=== PATIENT | female | born 1985 | race Caucasian/White ===

== ENCOUNTER 2016-05-21 17:51 | Observation (INO) | payer BC, OTHER ==
[~2016-05-21] VITALS: Ht 154.9 cm; Wt 101.0 kg
[2016-05-21] MEDS ORDERED: morphine 4 MG/ML VIAL IV STA ×2 (20:20→22:31)
--- NOTE | 2016-05-21 20:38 | ERD ---
ER Documentation Chief Complaint Date/Time DATE: 05/21/16 TIME: 20:34 Chief Complaint RIGHT PELVIC PAIN, ONSET 3 WEEKS, NO VAG BLEEDING, SENT PER PMD HPI This is a 30-year-old female presents emergency department for right-sided pelvic pain 3 weeks. Patient states pain started 3 weeks ago however has gotten worse over the last 5 days. Denies vaginal bleeding or vaginal discharge. No relieving or aggravating factors. Patient rating pain 10/10 to right pelvis. Pain is nonradiating. No dysuria or hematuria. No abdominal or chest pain. Denies shortness of breath or difficulty breathing. No diarrhea. Patient was seen in outside facility in which a pelvic ultrasound was done and due to insurance patient was sent here for additional evaluation. Patient was told she has a right twisted ovarian cyst and that she would need to be admitted. Patient did have one episode of vomiting last night and this morning however has taken antinausea medicine as prescribed and has had no vomiting since. Patient taking [place] at home for pain. ROS All systems reviewed and are negative except as per history of present illness. Allergies Allergies: Coded Allergies: No Known Allergy (Unverified , 05/21/16) PMhx/Soc Medical and Surgical Hx: pt denies Medical Hx, pt denies Surgical Hx Hx Alcohol Use: No Hx Substance Use: No Hx Tobacco Use: No Smoking Status: Never smoker Physical Exam Vitals Vital Signs Date Time Temp Pulse Resp B/P Pulse Ox O2 Delivery O2 Flow Rate FiO2 05/21/16 18:11 99.3 94 18 128/67 97 Physical Exam Const: No acute distress, alert Head: Atraumatic Eyes: Normal Conjunctiva ENT: Normal External Ears, Nose and Mouth. Neck: Full range of motion..~ No meningismus. Resp: Clear to auscultation bilaterally Cardio: Regular rate and rhythm, no murmurs Abd: Soft, non distended. Normal bowel sound. tenderness to right pelvis with palpation. Negative Rogers sign. Negative rebound tenderness. Skin: No petechiae or rashes Back: No midline or flank tenderness Ext: No cyanosis, or edema Neur: Awake and alert Psych: Normal Mood and Affect Result Diagram: 05/21/16205405/21/162054 Results 24 hrs Laboratory Tests Test 05/21/16 20:55 05/21/16 20:58 Anion Gap 16 Basophils # 0.110^3/ul Basophils % 0.4% Blood Morphology Comment Blood Urea Nitrogen 7mg/dl Calcium Level 9.1mg/dl Carbon Dioxide Level 28mmol/L Chloride Level 103mmol/L Creatinine 0.58mg/dl Eosinophils # 0.310^3/ul Eosinophils % 1.9% Glucose Level 78mg/dl Hematocrit 40.6% Hemoglobin 13.9g/dl Lymphocytes # 4.410^3/ul Lymphocytes % 30.2% Mean Corpuscular Hemoglobin 30.7pg Mean Corpuscular Hemoglobin Concent 34.2g/dl Mean Corpuscular Volume 89.7fl Mean Platelet Volume 7.2fl Monocytes # 0.510^3/ul Monocytes % 3.4% Neutrophils # 9.310^3/ul Neutrophils % 64.1% Nucleated Red Blood Cells # 0.010^3/ul Nucleated Red Blood Cells % 0.0/100WBC Platelet Count 29582^3/UL Potassium Level 3.9mmol/L Red Blood Count 4.5310^6/ul Red Cell Distribution Width 12.6% Sodium Level 143mmol/L White Blood Count 14.510^3/ul Bedside Urine Blood Trace-lysed Bedside Urine Glucose (UA) Negative Bedside Urine Ketones (LAB) Negative Bedside Urine Leukocyte Esterase (L Negative Bedside Urine Nitrite (LAB) Negative Bedside Urine Protein (LAB) Negative Bedside Urine pH (LAB) 5.5 Current Medications Medications (Trade) Dose Ordered Sig/Omar Route PRN Reason Start Time Stop Time Status Last Admin Dose Admin Morphine Sulfate (morphine) 4 mg ONCE STAT IV 05/21/16 20:20 05/21/16 20:23 DC 05/21/16 20:51 Morphine Sulfate (morphine) 4 mg ONCE STAT IV 05/21/16 22:31 05/21/16 22:33 DC 05/21/16 22:43 Hydromorphone HCl (Dilaudid) 0.5 mg ONCE STAT IV 05/22/16 01:02 05/22/16 01:04 DC 05/22/16 01:20 Procedures/MDM ED COURSE: The patient was stable throughout ED course. I kept the patient and/or family informed of laboratory and diagnostic imaging results throughout the ED course. IV was started Laboratory CBC White blood cell 14.5 otherwise unremarkable BMP unremarkable Urine dip trace blood otherwise negative Urine negative Gonorrhea and Chlamydia Imaging Pelvic ultrasound Patient: MIGUEL MACHADO: 1985 Age: 30 Sex: F MR #: [id number] DOS: 05/21/162019 Ordering MD: BENIGNO PEREZ NP Location: [facility] Room/Bed: PROCEDURE: US Pelvis. CLINICAL INDICATION: Pelvic pain. History of hysterectomy 2 years ago. TECHNIQUE: The pelvis was evaluated with transabdominal sonography in the axial and sagittal planes. COMPARISON: No prior study is available for comparison. FINDINGS: The uterus is surgically absent. The right ovary measures 5.7 x 4.9 x 4.5 cm and the left ovary measures 3.4 x 2.6 x 3.5 cm. There is a right ovarian cyst measuring 4.7 x 4.2 x 3.9 cm. There are no internal echoes or septations. The left ovary is normal. A small amount of free fluid is present adjacent to the right ovary. Color Doppler and pulsed Doppler sonography demonstrate normal flow to both ovaries. There is no other pelvic mass. IMPRESSION: 1. Status post hysterectomy. 2. Right ovarian benign-appearing cyst measuring 4.7 x 4.2 x 3.9 cm. Follow- up ultrasound in 3 months is advised. 3. Small amount of free fluid in the right adnexa. 4. Otherwise unremarkable study. MDM: 30-year-old female presents emergency department for right-sided pelvic pain. Patient has had pain for the past 3 weeks however worsened over the last 5 days. IV was started and patient was given morphine IV with some relief of pain. Patient continues to have pain and therefore another dose of morphine IV was given. Labs are unremarkable. No signs of serious infection or anemia. Urine negative for infection. Pelvic ultrasound reviewed by radiologist shows status post hysterectomy. Right ovarian benign-appearing cyst measuring 4.7 x 4.2 x 3.9 cm. Follow-up ultrasound in 3 months is advised. Small amount of free fluid in the right adnexa. Otherwise unremarkable study. Patient states she was sent here for admission by Dr. Azam Rocha and therefore on-call laborist, Dr. Hu was notified. Dr. Hu at bedside to examine patient. Dr. Hu would like to admit patient for observation and possible procedure. Patient kept NPO. Patient given dose of Dilaudid and now patientt remains comfortable. Departure Diagnosis: Primary Impression: Ovarian cyst Laterality: right Qualified Code: N83.201 - Cyst of right ovary Condition: BENIGNO Mccray NP May 21, 2016 20:38
[2016-05-21 20:57] LABS: URINE BLOOD (Dip) POC Trace-lysed (NEGATIVE)
[2016-05-21 21:34] LABS: BASOPHIL # 0.1 10^3/ul (0.0-0.1); BASOPHILS % 0.4 % (0.0-2.0); EOSINOPHILS # 0.3 10^3/ul (0.0-0.5); EOSINOPHILS % 1.9 % (0.0-7.0); HEMATOCRIT 40.6 % (37.0-47.0); HEMOGLOBIN 13.9 g/dl (12.0-16.0); LYMPHOCYTES # 4.4 10^3/ul (0.8-2.9); LYMPHOCYTES % 30.2 % (15.0-51.0); MEAN CORPUSCULAR HEMOGLOBIN 30.7 pg (29.0-33.0); MEAN CORPUSCULAR HGB CONC 34.2 g/dl (32.0-37.0); MEAN CORPUSCULAR VOLUME 89.7 fl (82.0-101.0); MEAN PLATELET VOLUME 7.2 fl (7.4-10.4); MONOCYTE # 0.5 10^3/ul (0.3-0.9); MONOCYTES % 3.4 % (0.0-11.0); NEUTROPHIL # 9.3 10^3/ul (1.6-7.5); NEUTROPHILS % 64.1 % (39.0-77.0); PLATELET COUNT 290 10^3/UL (140-440); RED BLOOD COUNT 4.53 10^6/ul (4.20-5.40); RED CELL DISTRIBUTION WIDTH 12.6 % (11.5-14.5); UNCORRECTED WBC 14.5 10^3/ul (4.8-10.8); WHITE BLOOD COUNT 14.5 10^3/ul (4.8-10.8)
[2016-05-21 21:35] LABS: CONDITION 1
[2016-05-21 21:41] LABS: POTASSIUM 3.9 mmol/L (3.5-5.1)
[2016-05-21 21:43] LABS: CREATININE 0.58 mg/dl (0.44-1.00)
[2016-05-21 21:44] LABS: CALCIUM 9.1 mg/dl (8.4-10.2)
--- NOTE | 2016-05-21 22:08 | RADRPT ---
PROCEDURE: US Pelvis. CLINICAL INDICATION: Pelvic pain. History of hysterectomy 2 years ago. TECHNIQUE: The pelvis was evaluated with transabdominal sonography in the axial and sagittal plane s. COMPARISON: No prior study is available for comparison. FINDINGS: The uterus is surgically absent. The right ovary measures 5.7 x 4.9 x 4.5 cm and the left ovary esther sures 3.4 x 2.6 x 3.5 cm. There is a right ovarian cyst measuring 4.7 x 4.2 x 3.9 cm. There are no internal echoes or septations. The left ovary is normal. A small amount of free fluid is present adjacent to the right ovary. Color Doppler and pulsed Doppler sonography demonstrate normal flow to both ovaries. There is no other pelvic mass. IMPRESSION: 1. Status post hysterectomy. 2. Right ovarian benign-appearing cyst measuring 4.7 x 4.2 x 3.9 cm. Follow-up ultrasound in 3 mon ths is advised. 3. Small amount of free fluid in the right adnexa. 4. Otherwise unremarkable study. RPTAT: QQ .Deacon Bates MD, MD Date Time Electronically viewed and signed by .Deacon Bates MD, on 05/21/2016 22:07 .R/
[2016-05-22] VITALS (24 sets, daily range): BP systolic 80–142; BP diastolic 45–88; PULSE 66–102; RESP 12–23; TEMP 98; Ht 154.9 cm; Wt 101.0 kg
[2016-05-22] MEDS ORDERED: HYDROmorphONE 1 MG/ML SYG IV STA (01:02)
[2016-05-22] MEDS: HYDROmorphONE 1 MG/ML SYG IV PRN ×2 (05:30→09:38)
[2016-05-22] MEDS: ONDANSETRON 4 MG INJ IV PRN ×3 (05:30→13:46)
[2016-05-22] MEDS: DEXTROSE 5%-LR 1,000 ML IV SCH ×2 (05:55→13:00)
[2016-05-22] MEDS ORDERED: ONDANSETRON 4 MG INJ ONE (07:00)
[2016-05-22 07:14] LABS: HEMATOCRIT 36.1 % (37.0-47.0); HEMOGLOBIN 12.8 g/dl (12.0-16.0); MEAN CORPUSCULAR HGB CONC 35.5 g/dl (32.0-37.0); MEAN CORPUSCULAR VOLUME 90.2 fl (82.0-101.0); MEAN PLATELET VOLUME 7.3 fl (7.4-10.4); PLATELET COUNT 257 10^3/UL (140-440); RED CELL DISTRIBUTION WIDTH 12.4 % (11.5-14.5); UNCORRECTED WBC 12.3 10^3/ul (4.8-10.8); WHITE BLOOD COUNT 12.3 10^3/ul (4.8-10.8)
[2016-05-22 07:27] LABS: CONDITION 1; LH ANALYZER COMMENTS 1; SUSPECT 1
--- NOTE | 2016-05-22 07:30 | QN ---
Documentation Comment 30 yo with a 3-4 wks Constant abdominal pain +Nausea +Vomiting ,Admitted for Observation last night s/p Laparascopic hysterectomy few years ago. VS stable WBC 14.5 Abd RLQ tenderness No rebound --->NPO --->Zosyn ---->Stat CT scan LISA STEWARD M.D. May 22, 2016 07:30
--- NOTE | 2016-05-22 09:15 | CONS ---
DATE OF ADMISSION: 05/22/2016 DATE OF CONSULTATION: REFERRING PHYSICIAN: Ashanti Fried NP Thank you very much for allowing me to participate in the care of your patient, Marnie Aleida. As you know, Marnie is a 30-year-old 0 who presented to the emergency department with complaint of abdominal pain since 2 weeks ago. Initially, she presented to the emergency department of [facility] and pelvic ultrasound was performed and then due to her insurance, she was discharged and recommended to have followup in the emergency department at [facility]. Marnie states that the pain started 2 weeks ago and gradually got worse today. She denies nausea, vomiting, diarrhea, shortness of breath, chest pain, or history of any previous GI disease. The patient states she had a laparoscopic hysterectomy in 2012 for preinvasive/ invasive cervical cancer. She did not have any radiation after surgery. She is not sure what was the pathology report. TAPE [employer]CH[employer]IC HISTORY: Menarche at age 13. Previously she had regular menstrual cycles with interval of 30 days and duration of 5 to 7 days. She denies sexually transmitted infections or PID. OB HISTORY: Nulliparous. PAST MEDICAL HISTORY: Preinvasive/invasive cervical cancer. PAST SURGICAL HISTORY: Laparoscopic hysterectomy in 2012. FAMILY HISTORY: Mother with breast cancer at age 48. Sister with breast cancer. Father with lung cancer. She denies uterine, ovarian or colon cancer. SOCIAL HISTORY: She is single. She recently moved from [place] to [place]. She denies tobacco, alcohol or drug use. ALLERGIES: NO KNOWN DRUG ALLERGIES. MEDICATIONS: None. PHYSICAL EXAMINATION VITAL SIGNS: Blood pressure 130/79, pulse rate 72 per minute, respiratory rate 14 per minute, O2 saturation 98%. GENERAL: She is comfortable, no acute distress, appropriate mood and affect. HEART: Regular rhythm and rate. No murmur. LUNGS: Clear to auscultation bilateral. ABDOMEN: Soft, mild tenderness at the lower right quadrant. There is no rebound or guarding. FLANK: No CVA tenderness bilateral. EXTREMITIES: No edema, varicose vein, thigh or calf tenderness bilaterally. PELVIC: External genitalia normal. Vagina normal, no lesions seen. Cervix and uterus are surgically absent. Minimal tenderness at left adnexa. Right adnexa with fullness, possible 5 x 6 cm cyst with mild tenderness. Pelvic ultrasound was performed which revealed the uterus is surgically absent. The right ovary measured 5.7 x 4.9 x 4.5 cm and left ovary measures 3.4 x 2.6 x 3.5 cm. There is a right ovarian cyst measuring 4.7 x 4.2 x 3.9 cm. There is no septations. The left ovary is normal. Small amount of free fluid is present adjacent to the right ovary. Color Doppler and pulse Doppler sonogram demonstrate normal flow to both ovaries. There is no other pelvic mass. CBC: WBC 14.5, RBC 4.53, hemoglobin 13.9, hematocrit 40.6, platelets 290. Sodium 143, potassium 3.9, BUN 7, creatinine 0.58, glucose 78, calcium 9.1. Urine normal except for trace light blood. ASSESSMENT AND PLAN: A 30-year-old 0 with right ovarian cyst, possible ovarian torsion. She currently is stable, received morphine for the pain. She will be reevaluated in the morning. The patient has history of a laparoscopic hysterectomy for preinvasive/invasive cervical cancer. The patient was admitted for observation. She will kept n.p.o. Blood type and screen and 2 units of packed RBCs ordered. She will be reevaluated in the morning. Ovarian torsion, laparoscopic, ovarian cystectomy/oophorectomy with risks, benefits and alternatives discussed in detail with the patient. The risks for laparoscopic, right cystectomy/oophorectomy and possible laparotomy including, but not limited to, bleeding, infection, injury to other organs (bowel, bladder , ureters and nerves), blood transfusion related infection, scar or hernia formation, removal of both ovaries or any other indicated surgery were discussed with the patient in detail. She expressed understanding. All of her questions were answered. Dictated By: MARC SAUCEDA/FELA Conf#: [id number] DID#: [id number] ANISH
[2016-05-22] MEDS ORDERED: SOD CHLORIDE 0.9% 100 ML ONE (10:02)
[2016-05-22] MEDS ORDERED: IOHEXOL 300MG/ML 150 ML BTL ONE (10:02)
[2016-05-22 10:24] LABS: LYMPHOCYTES # 6.3 10^3/ul (0.8-2.9); MONOCYTE # 0.7 10^3/ul (0.3-0.9); NEUTROPHIL # 5.3 10^3/ul (1.6-7.5)
--- NOTE | 2016-05-22 10:35 | RADRPT ---
PROCEDURE: CT Abdomen and Pelvis with Contrast CLINICAL INDICATION: Pelvic pain, rule out appendicitis TECHNIQUE: Transaxial images were obtained through the abdomen and pelvis on a multi-slice scanner following the intravenous administration of iodinated contrast. Sagittal and coronal re-formations were subsequently reconstructed. One or more of the following dose reduction techniques were used: - Automated exposure control. - Adjustment of the mA and/or kV according to patient size. - Use of iterative reconstruction technique. Radiation dose: CTDIvol = 23.48 mGy; DLP = 1475.03 mGy-cm. COMPARISON: Pelvic sonogram to 05/21/2016 The previous sonogram demonstrated 4 cm right ovarian simple cyst, absence of the uterus, and a trac e of free fluid. FINDINGS: Lung bases: The visualized lung bases appear unremarkable. Liver: Normal in size and in attenuation. There is no focal lesion. The hepatic veins and portal vei ns appear patent. Gallbladder: The wall is not thickened. No radiopaque stones are identified. Bile ducts: The intra and extrahepatic bile ducts are normal in caliber. Pancreas: Appears normal with no mass or inflammation evident. Spleen: Normal in size with no focal lesion. Adrenals: Normal with no mass identified. Kidneys, ureters and bladder: The kidneys enhance normally and are normal in size and there is no ma ss, pathological calcification, or hydronephrosis evident. There is no perinephric stranding. The ur eters are normal in caliber and no ureteroliths are identified. The bladder appears unremarkable. Reproductive organs: The uterus is absent. There is a right adnexal cyst measuring 5.9 x 5.2 x 4.6 cm. There is a calcification within the right anterior lateral wall of the cyst. Stomach, bowel, and mesentery: The bowel appears unremarkable with no evidence of bowel obstruction or inflammation. The stomach appears unremarkable. Appendix: A normal vermiform appendix is evident. Peritoneum: There is a small amount of free fluid within the right pelvis. No free air is identifie d. There is a small fat containing umbilical hernia. Aorta: Normal in caliber with no aneurysmal dilatation. IVC: Unremarkable. Lymph nodes: No pathologically enlarged nodes are identified. Osseous structures: The osseous elements appear intact. IMPRESSION: 1. There is a normal-appearing vermiform appendix. There is no evidence of bowel obstruction or in flammation. 2. There is no evidence of urinary outflow obstruction or ureterolithiasis. 3. Status post hysterectomy. 4. There is a right adnexal cyst that now measures 5.9 x 5.2 x 4.6 cm. This measures larger than w as measured on the previous sonogram. A calcification is seen within the right anterolateral wall o f the cyst. 5. Small amount of free fluid seen in the pelvis. No free air is evident. 7. No adenopathy is identified. Physician Carina Date Time Electronically viewed and signed by Physician Carina on 05/22/2016 10:35 RH/
[2016-05-22] MEDS ORDERED: CEFAZOLIN 2 GM/50 ML (PMX) 50 ML IVPB ONE (11:30)
[2016-05-22] MEDS ORDERED: PROPOFOL 100 ML ONE (11:59)
[2016-05-22] MEDS ORDERED: ACETAMINOPHEN 1000MG/100ML IV 100 ML ONE (12:00)
[2016-05-22] MEDS ORDERED: MIDAZOLAM 1 MG/ML 2 ML INJ ONE (12:03)
[2016-05-22] MEDS ORDERED: ROCURONIUM 50 MG INJ ONE ×2 (12:03→12:33)
[2016-05-22] MEDS ORDERED: LIDOCAINE 2% (SDV) 5 ML INJ ONE (12:04)
[2016-05-22] MEDS ORDERED: HYDROmorphONE (0.2 MG/ML) 10ML SYG IV PRN ×2 (12:30)
[2016-05-22] MEDS ORDERED: hydrALAzine 20 MG INJ IV PRN (12:30)
[2016-05-22] MEDS ORDERED: ONDANSETRON 4 MG INJ IV PRN (12:30)
[2016-05-22] MEDS ORDERED: METOCLOPRAMIDE 10 MG INJ IV PRN (12:30)
[2016-05-22] MEDS ORDERED: LABETALOL HCL 20MG INJ IV PRN (12:30)
[2016-05-22] MEDS ORDERED: MEPERIDINE 25 MG INJ IV PRN (12:30)
[2016-05-22] MEDS ORDERED: FENTAnyl 50 MCG/ML VIAL IV PRN ×2 (12:30)
[2016-05-22] MEDS ORDERED: DEXAMETHASONE 4 MG/ML 1 ML INJ ONE (12:41)
[2016-05-22] MEDS ORDERED: KETOROLAC 30 MG INJ ONE (13:06)
[2016-05-22] MEDS ORDERED: BUPIVACAINE 0.5% (SDV) 30 ML INJ ONE (13:07)
[2016-05-22] MEDS ORDERED: NEOSTIGMINE 3 MG/3 ML SYRINGE ONE (13:08)
[2016-05-22] MEDS ORDERED: GLYCOPYRROLATE 0.4 MG INJ ONE (13:09)
[2016-05-22] MEDS: FENTAnyl 50 MCG/ML VIAL IV PRN ×3 (13:29→13:43)
[2016-05-22] MEDS: HYDROmorphONE (0.2 MG/ML) 10ML SYG IV PRN ×2 (13:47→13:59)
[2016-05-22] MEDS ORDERED: PIPER-TAZO 3.375 GM IV (PMX) 100 ML IVPB SCH (14:00)
--- NOTE | 2016-05-22 17:04 | OPR ---
DATE OF OPERATION: 05/22/2016 PREOPERATIVE DIAGNOSIS: Right ovarian torsion, right ovarian cyst. POSTOPERATIVE DIAGNOSIS: Ruptured ovarian cyst and endometrioma. ATTENDING SURGEON: Pascual Mayes MD. ANESTHESIOLOGIST: Dr. Liu. TYPE OF ANESTHESIA: General. COMPLICATIONS: None. ESTIMATED BLOOD LOSS: Less than 5 mL. TECHNIQUE: The patient was taken to the operating room where general anesthesia was found to be steven quate. The patient was placed in dorsal lithotomy position. After prep and drape, a 1 cm incision was made at the umbilicus. The first trocar was inserted under direct visualization of the camera. The abdominal cavity was filled up using 4 liters of CO2. Then the second and third trocars were in serted under direct visualization of the camera 8 to 10 cm from the first incision on both sides. A ruptured right ovarian cyst was noticed. Peritoneal washing was sent to pathology. A right ovaria n cyst and cyst wall and part of the uteroovarian wall were cut using a gyrus and sent to pathology . Copious irrigation of abdominal and pelvic cavity was done. Hemostasis achieved. Blood loss was less than 5 mL. Then gas was removed. Instruments and trocars were removed under direct visualizati on of the camera. The fascia at the right sided incision was closed using 0 Vicryl, and then the ski n incision was closed with 3-0 Monocryl on all 3 incisions, and Dermabond was placed on top of the i ncisions. Local anesthetic was injected at both sides of the incisions. The patient tolerated the procedure well and was transferred to recovery room in stable condition. There was no complication regarding this procedure. Dictated By: PASCUAL OLEA/FELA Conf#: [id number] DID#: [id number]
--- NOTE | 2016-05-22 17:09 | HP ---
DATE OF ADMISSION: 05/22/2016 HISTORY OF PRESENT ILLNESS: This is a 30-year-old para 2 admitted through the emergency room yester day with a possible diagnosis of torsed ovarian cyst. PAST MEDICAL HISTORY: Denies. PAST SURGICAL HISTORY: Hysterectomy due to cervical dysplasia. ALLERGIES: NKDA. PHYSICAL EXAMINATION: VITAL SIGNS: Stable. GENERAL: Exam normal. ABDOMINAL EXAMINATION: Abdomen was tender at the right lower quadrant. No rebound. ASSESSMENT AND PLAN: A 30-year-old para 2 with suspected right ovarian torsion and ovarian cyst. W as consented for laparoscopic right ovarian cystectomy, possible oophorectomy and possible laparotom y. Risks and benefits were extensively discussed with the patient. The patient signed the consent and was taken to the operating room. Dictated By: LISA OLEA/FELA Conf#: [id number] DID#: [id number]
[2016-05-23] MEDS ORDERED: INFLUENZA VIRUS VACCINE 0.5 ML (DISPENSING) IM* ONE (09:00)
== END 2016-05-22 16:30 | disposition home or self-care (01) ==
LOC: FTE 17:51 → MS1 05-22 02:10
PROVIDERS: ADMIT Obstetrics & Gynecology; ATTEND Obstetrics & Gynecology
DX: N83.201 Unspecified ovarian cyst, right side (principal); Z90.710 Acquired absence of both cervix and uterus; Z85.41 Personal history of malignant neoplasm of cervix uteri; Z80.3 Family history of malignant neoplasm of breast; Z80.1 Family history of malignant neoplasm of trachea, bronchus and lung; E66.01 Morbid (severe) obesity due to excess calories; Z68.41 Body mass index [BMI] 40.0-44.9, adult
CPT/HCPCS: 36415; 58662; 74177; 76856; 80048; 81003; 85025; 86850; 86900; 86901; 86920; 87591; 88104; 88305; 96374; 96375; 96376; 99285; J0131; J1100; J1170; J2250; J2270; J2405; J2710; J3010; J7121; Q9967; Z7500; Z7512; Z7610; G0378; J1885